=== PATIENT | male | born 1980 | race Caucasian/White ===

== ENCOUNTER 2018-06-17 07:50 | Emergency (ER) | payer MEDICARE ==
[~2018-06-17] VITALS: Ht 177.8 cm; Wt 80.0 kg
[2018-06-17] MEDS ORDERED: HYDROCODONE/ACETAMINOPHEN 5/325MG TABLET PO ONE (08:30)
[2018-06-17 08:56] VITALS: BP 128/91
== END 2018-06-17 08:56 | disposition home or self-care (01) ==
LOC: ER 08:12
DX: K08.89 Other specified disorders of teeth and supporting structures (principal); F12.10 Cannabis abuse, uncomplicated; Z87.891 Personal history of nicotine dependence
CPT/HCPCS: 99283